=== PATIENT | female | born 1990 | race Two or more races ===

== ENCOUNTER 2016-12-17 14:18 | Emergency (ER) | payer SELFPAY ==
[2016-12-17 14:30] VITALS: BP 132/80; PULSE 81; TEMP 98.6; BMI 30.2
== END 2016-12-17 16:43 | disposition left against medical advice (07) ==
LOC: JERFT 14:18
DX: Z53.21 Procedure and treatment not carried out due to patient leaving prior to being seen by health care provider (principal)
CPT/HCPCS: 99281-25